=== PATIENT | male | born 1985 | race African-American/Black ===

== ENCOUNTER 2018-09-07 08:55 | Emergency (ER) | payer SELFPAY ==
[2018-09-07] MEDS ORDERED: FAMOTIDINE 20 MG/2 ML VIAL IV ONE (09:29)
[2018-09-07 09:35] LABS: Absolute Lymphocytes (CBC) 2.6 K/uL (0.7-4.9); Absolute Neutrophil 7.3 K/uL (1.8-8.0); Basophils % 0.5 % (0-1.3); Eosinophils % 1.8 % (0-4.4); Hematocrit 47.4 % (39.6-49.0); Lymphocytes % 23.4 % (15.3-44.8); MPV 9.2 fL (7.6-11.3); Monocytes % 8.7 % (3.3-12.3); RBC Red Blood Cell Count 5.13 M/uL (4.33-5.43)
[2018-09-07 09:53] LABS: ALT/SGPT 26 U/L (12-78); AST/SGOT 16 U/L (15-37); Albumin 3.8 g/dL (3.4-5.0); Alkaline Phosphatase 62 U/L (45-117); BUN Blood Urea Nitrogen 10 mg/dL (7-18); Bicarbonate 27 mmol/L (21-32); Bilirubin Direct 0.1 mg/dL (0-0.2); Bilirubin Total 0.5 mg/dL (0.2-1.0); Glucose Level 90 mg/dL (74-106); Lipase 95 U/L (73-393); Potassium 3.8 mmol/L (3.5-5.1); Protein, Total 7.3 g/dL (6.4-8.2); Sodium Level 142 mmol/L (136-145)
--- NOTE | 2018-09-07 10:51 | RAD REPORT ---
EXAM DESCRIPTION: CT - Stone Protocol - 09/07/2018 10:33 am CLINICAL HISTORY: Flank pain. ABD PAIN COMPARISON: No comparisons TECHNIQUE: Axial images were obtained without oral or IV contrast. Lack of contrast limits solid org an and vascular assessment. The [id number] spans the entirety of the system partially obscuring uppermost abdomen and lung bases. Coronal reformatted images were obtained and reviewed. All CT scans are performed using dose optimization technique as appropriate and may include automated exposure control or mA/KV adjustment according to patient size. FINDINGS: The lower lung ferreira are clear. Imaged portions of the liver and spleen show no suspicious findings on non-contrast imaging. The panc reas and adrenal glands are normal. Mildly prominent lymph nodes are seen in the small bowel mesenter y. No urinary tract stones or obstructive uropathy. No bowel obstruction, free air, free fluid or abscess. Normal appendix noted. No significant bony abnormality. IMPRESSION: No urinary tract stones or obstructive uropathy. Mild mesenteric adenitis is possible.
[2018-09-07 10:56] LABS: Urine Bacteria <20 /HPF (NONE SEEN); Urine Culture Reflex Order NOT NEEDED; Urine Mucus 3+ /HPF (NONE SEEN); Urine RBC <5 /HPF (NONE SEEN)
[2018-09-07 11:01] LABS: Urine Blood TRACE (NEG); Urine Glucose NEGATIVE (NEG); Urine Protein 1+ (NEG); Urine Specific Gravity 1.025 (1.005-1.030); Urine pH 5.5 (5.0-7.0)
--- NOTE | 2018-09-07 11:17 | ER ---
Nurse's Notes [facility] Name: Paula Dennis Age: 32 yrs Sex: Male : 1985 Arrival Date: 09/07/2018 Time: 08:58 Bed 19 Private MD: Diagnosis: Nonspecific mesenteric lymphadenitis;Abdominal and pelvic pain Presentation: 09/07 09:06 Presenting complaint: Patient states: c/o diffuse abd pain X 4 days, intermittent, iw feels sharp, vomited once on Monday, c/o nausea, not eating. Transition of care: patient was not received from another setting of care. Onset of symptoms was September 04, 2018. Risk Assessment: Do you want to hurt yourself or someone else? Patient reports no desire to harm self or others. Initial Sepsis Screen: Does the patient meet any 2 criteria? No. Patient's initial sepsis screen is negative. Does the patient have a suspected source of infection? No. Patient's initial sepsis screen is negative. Care prior to arrival: None. 09:06 Method Of Arrival: Ambulatory iw 09:06 Acuity: JOLANTA 3 iw Historical: - Allergies: 09:08 NKA; iw - Home Meds: 09:08 None [Active]; iw - PMHx: 09:08 None; iw - PSHx: 09:08 None; iw - Immunization history:: Adult Immunizations not up to date. - Social history:: Smoking status: Patient uses tobacco products, smokes one pack cigarettes per day. - Ebola Screening: : Patient negative for fever greater than or equal to 101.5 degrees Fahrenheit, and additional compatible Ebola Virus Disease symptoms Patient denies exposure to infectious person Patient denies travel to an Ebola-affected area in the 21 days before illness onset No symptoms or risks identified at this time. Screenin:33 Abuse screen: Denies threats or abuse. Nutritional screening: No deficits noted. em Tuberculosis screening: No symptoms or risk factors identified. Fall Risk None identified. Assessment: 09:30 General: Appears in no apparent distress. uncomfortable, Behavior is calm, cooperative, em Denies fever. Pain: Complains of pain in abdomen Pain currently is 9 out of 10 on a pain scale. Neuro: Level of Consciousness is awake, alert, obeys commands, Oriented to person, place, time, situation. Cardiovascular: Capillary refill < 3 seconds Patient's skin is warm and dry. Respiratory: Airway is patent Respiratory effort is even, unlabored, Respiratory pattern is regular, symmetrical. GI: Abdomen is flat, Bowel sounds present X 4 quads. Abd is soft X 4 quads Abdomen is tender to palpation X 4 quads. Derm: Skin is intact, Skin is pink, warm \T\ dry. Musculoskeletal: Range of motion: intact in all extremities. 09:50 Reassessment: Patient appears in no apparent distress at this time. Patient and/or iw family updated on plan of care and expected duration. Pain level reassessed. I agree with above assessment by Ravi Calle LVN. 10:19 Reassessment: Patient appears in no apparent distress at this time. Patient and/or em family updated on plan of care and expected duration. Pain level reassessed. Patient is alert, oriented x 3, equal unlabored respirations, skin warm/dry/pink. Patient states feeling better. Patient states symptoms have improved. 11:30 Reassessment: Patient appears in no apparent distress at this time. Patient and/or em family updated on plan of care and expected duration. Pain level reassessed. Patient is alert, oriented x 3, equal unlabored respirations, skin warm/dry/pink. Patient states feeling better. Patient states symptoms have improved. Vital Signs: 09:08 BP 129 / 90; Pulse 77; Resp 16 S; Temp 98.6(O); Pulse Ox 99% on R/A; Weight 73.48 kg; iw Height 5 ft. 6 in. (167.64 cm); Pain 10/10; 10:19 BP 124 / 76; Pulse 60; Resp 18; Pulse Ox 99% ; Pain 0/10; em 11:30 BP 124 / 76; Pulse 61; Resp 18; Pulse Ox 99% on R/A; Pain 0/10; em 09:08 Body Mass Index 26.15 (73.48 kg, 167.64 cm) ED Course: 08:58 Patient arrived in ED. as 09:08 Triage completed. iw 09:08 Ravi Calle LVN is Primary Nurse. em 09:08 Arm band placed on. iw 09:09 Edwin Durán MD is Attending Physician. gs 09:29 Inserted saline lock: 20 gauge in right antecubital area, using aseptic technique. ag Blood collected. 09:30 Basic Metabolic Panel Sent. ag 09:30 CBC with Diff Sent. ag 09:30 Hepatic Function Sent. ag 09:30 Lipase Sent. ag 09:33 Patient has correct armband on for positive identification. Placed in gown. Bed in low em position. Call light in reach. Adult w/ patient. 10:31 CT completed. Patient tolerated procedure well. Patient moved to CT via wheelchair. sj Patient moved back from CT. 10:34 CT Stone Protocol In Process Unspecified. EDMS 11:38 No provider procedures requiring assistance completed. IV discontinued, intact, em bleeding controlled, No redness/swelling at site. Pressure dressing applied. Administered Medications: 09:26 Drug: Pepcid 20 mg Route: IVP; Site: right antecubital; iw 09:55 Follow up: Response: No adverse reaction; Pain is decreased em Outcome: 11:16 Discharge ordered by . gs 11:38 Discharged to home ambulatory, with family. em 11:38 Condition: good 11:38 Discharge instructions given to patient, family, Instructed on discharge instructions, follow up and referral plans. Demonstrated understanding of instructions, follow-up care. 11:39 Patient left the ED. em Signatures: Dispatcher [employer] Billie Mendoza Edgar, RAFTSMAN RAFTSMAN Nina Harrison Irene, NENO RN Kandis Banuelos Gregory, MD MD gs
--- NOTE | 2018-09-07 11:18 | EDPHYS ---
Physician Documentation [facility] Name: Paula Dennis Age: 32 yrs Sex: Male : 1985 Arrival Date: 09/07/2018 Time: 08:58 Bed 19 Private MD: ED Physician Edwin Durán HPI: 09/07 11:11 This 32 yrs old Black Male presents to ER via Ambulatory with complaints of Abdominal gs Pain. 11:11 The patient presents with abdominal pain that is diffuse. Onset: The symptoms/episode gs began/occurred gradually, 3 day(s) ago, and became persistent. The symptoms do not radiate. Associated signs and symptoms: Pertinent negatives: nausea and vomiting, chest pain. The symptoms are described as intermittent. Modifying factors: The symptoms are alleviated by nothing, the symptoms are aggravated by nothing. Severity of pain: At its worst the pain was moderate in the emergency department the pain has improved markedly. The patient has experienced similar episodes in the past, a few times. Historical: - Allergies: 09:08 NKA; iw - Home Meds: : None [Active]; iw - PMHx: :08 None; iw - PSHx: 09:08 None; iw - Immunization history:: Adult Immunizations not up to date. - Social history:: Smoking status: Patient uses tobacco products, smokes one pack cigarettes per day. - Ebola Screening: : Patient negative for fever greater than or equal to 101.5 degrees Fahrenheit, and additional compatible Ebola Virus Disease symptoms Patient denies exposure to infectious person Patient denies travel to an Ebola-affected area in the 21 days before illness onset No symptoms or risks identified at this time. ROS: 11:11 All other systems are negative. gs Exam: 11:11 Head/Face: Normocephalic, atraumatic. Eyes: Pupils equal round and reactive to light, gs extra-ocular motions intact. Lids and lashes normal. Conjunctiva and sclera are non-icteric and not injected. Cornea within normal limits. Periorbital areas with no swelling, redness, or edema. ENT: Nares patent. No nasal discharge, no septal abnormalities noted. Tympanic membranes are normal and external auditory canals are clear. Oropharynx with no redness, swelling, or masses, exudates, or evidence of obstruction, uvula midline. Mucous membranes moist. Neck: Trachea midline, no thyromegaly or masses palpated, and no cervical lymphadenopathy. Supple, full range of motion without nuchal rigidity, or vertebral point tenderness. No Meningismus. Chest/axilla: Normal chest wall appearance and motion. Nontender with no deformity. No lesions are appreciated. Cardiovascular: Regular rate and rhythm with a normal S1 and S2. No gallops, murmurs, or rubs. Normal PMI, no JVD. No pulse deficits. Respiratory: Lungs have equal breath sounds bilaterally, clear to auscultation and percussion. No rales, rhonchi or wheezes noted. No increased work of breathing, no retractions or nasal flaring. Back: No spinal tenderness. No costovertebral tenderness. Full range of motion. Skin: Warm, dry with normal turgor. Normal color with no rashes, no lesions, and no evidence of cellulitis. MS/ Extremity: Pulses equal, no cyanosis. Neurovascular intact. Full, normal range of motion. Neuro: Awake and alert, GCS 15, oriented to person, place, time, and situation. Cranial nerves II-XII grossly intact. Motor strength 5/5 in all extremities. Sensory grossly intact. Cerebellar exam normal. Normal gait. 11:11 Constitutional: The patient appears alert, awake. 11:11 Abdomen/GI: Inspection: abdomen appears normal, Palpation: mild abdominal tenderness, in all quadrants, rebound tenderness, is not appreciated. Vital Signs: 09:08 BP 129 / 90; Pulse 77; Resp 16 S; Temp 98.6(O); Pulse Ox 99% on R/A; Weight 73.48 kg; iw Height 5 ft. 6 in. (167.64 cm); Pain 10/10; 10:19 BP 124 / 76; Pulse 60; Resp 18; Pulse Ox 99% ; Pain 0/10; em 11:30 BP 124 / 76; Pulse 61; Resp 18; Pulse Ox 99% on R/A; Pain 0/10; em 09:08 Body Mass Index 26.15 (73.48 kg, 167.64 cm) iw MDM: 09:12 Patient medically screened. gs 11:11 Differential diagnosis: bowel obstruction, non-specific abd pain, pancreatitis, gs Ureterolithiasis. Data reviewed: vital signs, nurses notes, lab test result(s), radiologic studies, and as a result, I will discharge patient. Counseling: I had a detailed discussion with the patient and/or guardian regarding: the historical points, exam findings, and any diagnostic results supporting the discharge/admit diagnosis, lab results, radiology results, the need for outpatient follow up. Response to treatment: the patient's symptoms have markedly improved after treatment, the patient's condition has returned to base line, and as a result, I will discharge patient. 09/07 09:12 Order name: Basic Metabolic Panel; Complete Time: :59 09/07 09:12 Order name: CBC with Diff; Complete Time: :59 09/07 09:12 Order name: Hepatic Function; Complete Time: :59 09/07 09:12 Order name: Lipase; Complete Time: : 09/07 10:20 Order name: Urine Microscopic Only; Complete Time: : 09/07 10:25 Order name: Urine Dipstick--Ancillary (enter results); Complete Time: : 09/07 09:12 Order name: IV Saline Lock; Complete Time: : 09/07 09:12 Order name: Labs collected and sent; Complete Time: : 09/07 10:20 Order name: Urine Dipstick-Ancillary (obtain specimen); Complete Time: 10:33 09/07 10:21 Order name: CT Stone Protocol; Complete Time: 10:55 gs Administered Medications: 09:26 Drug: Pepcid 20 mg Route: IVP; Site: right antecubital; iw 09:55 Follow up: Response: No adverse reaction; Pain is decreased em Disposition: 09/07/18 11:16 Discharged to Home. Impression: Nonspecific mesenteric lymphadenitis, Abdominal and pelvic pain. - Condition is Stable. - Discharge Instructions: Abdominal Pain, Adult, [id number]. - Work release form, Family Work Release, Medication Reconciliation Form, Thank You Letter, Antibiotic Education, Prescription Opioid Use form. - Follow up: Private Physician; When: 2 - 3 days; Reason: Re-evaluation by your physician. Signatures: Dispatcher [employer] Ravi Stacy LVN LVN em Williams, Irene, RN RN iw Edwin uDrán MD MD Corrections: (The following items were deleted from the chart) 11:39 11:16 09/07/2018 11:16 Discharged to Home. Impression: Nonspecific mesenteric em lymphadenitis; Abdominal and pelvic pain. Condition is Stable. Forms are Medication Reconciliation Form, Thank You Letter, Antibiotic Education, Prescription Opioid Use. Follow up: Private Physician; When: 2 - 3 days; Reason: Re-evaluation by your physician. gs
== END 2018-09-07 11:39 | disposition home or self-care (01) ==
LOC: ER 08:55
DX: I88.0 Nonspecific mesenteric lymphadenitis (principal); F17.210 Nicotine dependence, cigarettes, uncomplicated
CPT/HCPCS: 36415; 74176; 76377; 80048; 80076; 81003; 81015; 83690; 85025; 96374; 99284

== ENCOUNTER 2020-08-28 07:26 | Emergency (ER) | payer SELFPAY ==
[2020-08-28] MEDS ORDERED: LIDOCAINE VISCOUS 2% SOLN 15 ML UDC ONE (07:31)
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
[2020-08-28 08:03] LABS: Absolute Lymphocytes (CBC) 1.8 K/uL (0.7-4.9); Basophils % 0.8 % (0-1.3); Hematocrit 42.5 % (39.6-49.0); MPV 9.5 fL (7.6-11.3); RBC Red Blood Cell Count 4.53 M/uL (4.33-5.43)
[2020-08-28] MEDS ORDERED: FENTANYL CITR 100 MCG/2 ML ONE (08:09)
[2020-08-28] MEDS ORDERED: TETANUS & DIPHTHERIA TOX,ADULT 0.5 ML VIAL ONE (08:21)
[2020-08-28] MEDS ORDERED: CEFAZOLIN/SWI 1gm 1 GM/10 ML SYR ONE (08:21)
[2020-08-28 08:59] LABS: Urine Blood 2+ (NEG); Urine Glucose NEGATIVE (NEG); Urine Protein NEGATIVE (NEG); Urine pH 5.5 (5.0-7.0)
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
[2020-08-28 09:20] LABS: BUN Blood Urea Nitrogen 8 mg/dL (7-18); Bicarbonate 25 mmol/L (21-32); Glucose Level 86 mg/dL (74-106); Potassium 3.9 mmol/L (3.5-5.1); Sodium Level 141 mmol/L (136-145)
[2020-08-28 09:38] LABS: Urine Bacteria <20 /HPF (NONE SEEN); Urine RBC NONE SEEN /HPF (NONE SEEN)
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
[2020-08-28] MEDS ORDERED: ONDANSETRON 4 MG (ODT) TAB ONE (10:38)
[2020-08-28 11:45] VITALS: TEMP 97.9; O2SAT 99
[2020-08-28 11:48] VITALS: BP 132/92
== END 2020-08-28 11:15 | disposition home or self-care (01) ==
LOC: ER 07:26
PROC: 0JQ80ZZ Repair Abdomen Subcutaneous Tissue and Fascia, Open Approach (ICD-10-PCS; principal; 2020-08-28)
DX: S31.114A Laceration without foreign body of abdominal wall, left lower quadrant without penetration into peritoneal cavity, initial encounter (principal); W26.0XXA Contact with knife, initial encounter; Y93.89 Activity, other specified; Y92.009 Unspecified place in unspecified non-institutional (private) residence as the place of occurrence of the external cause; F17.210 Nicotine dependence, cigarettes, uncomplicated
CPT/HCPCS: 36415; 71045; 74177; 80048; 81003; 81015; 85025; 90471; 90714; 99291; 99292; G0390; J0690; J3010; Q9967

== ENCOUNTER 2021-05-05 19:52 | Emergency (ER) | payer SELFPAY ==
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
[2021-05-05] MEDS ORDERED: MORPHINE 4 MG/ML SYR ONE (21:15)
[2021-05-05] MEDS ORDERED: ONDANSETRON 4 MG/2 ML VIAL ONE (21:15)
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
[2021-05-05 22:47] VITALS: TEMP 98.5
[2021-05-05 22:48] VITALS: BP 157/97; O2SAT 97
== END 2021-05-05 22:32 | disposition home or self-care (01) ==
LOC: ER 19:52
PROC: 0JQH0ZZ Repair Left Lower Arm Subcutaneous Tissue and Fascia, Open Approach (ICD-10-PCS; principal; 2021-05-05)
DX: S51.832A Puncture wound without foreign body of left forearm, initial encounter (principal); X95.9XXA Assault by unspecified firearm discharge, initial encounter; Y93.9 Activity, unspecified; Y92.9 Unspecified place or not applicable
CPT/HCPCS: 73206; 96374; 96375; 99284; J2405; Q9967